=== PATIENT | male | born 1990 | race Caucasian/White ===

== ENCOUNTER 2024-01-26 18:05 | Outpatient (REF) | payer MEDICAID, SELFPAY | END 2024-01-26 18:06 | disposition home or self-care (01) | LOC: HO.HHCLNP 18:05 | PROVIDERS: Visit Provider Student in an Organized Health Care Education/Training Program | DX: J02.9 Acute pharyngitis, unspecified (principal) | CPT/HCPCS: 87070 ==

== ENCOUNTER 2024-02-15 15:42 | Outpatient (REF) | payer MEDICAID, SELFPAY ==
[2024-02-16 02:35] LABS: CT PCR NOT DETECTED (Not Detect.); NG PCR NOT DETECTED (Not Detect.)
== END 2024-02-15 15:43 | disposition home or self-care (01) ==
LOC: HO.CHCLNP 15:42
PROVIDERS: Visit Provider Family Medicine
DX: Z11.3 Encounter for screening for infections with a predominantly sexual mode of transmission (principal)
CPT/HCPCS: 87491; 87591

== ENCOUNTER 2024-02-17 10:28 | Outpatient (REF) | payer MEDICAID, SELFPAY ==
[2024-02-17 14:17] LABS: MANUAL DIFF FLAG NO
[2024-02-17 14:44] LABS: Basophils Absolute Auto 0.1 X10*3/uL (0.0-0.2); Basophils Percent Auto 1.1 % (0-2); Eosinophils Absolute Auto 0.5 X10*3/uL (0.0-0.4); Eosinophils Percent Auto 8.4 % (0-4); Hematocrit 42.6 % (42.0-52.0); Hemoglobin 14.4 g/dl (14.0-18.0); Imm Gran Abs Auto 0.01 X10*3/uL (0.00-0.03); Imm Gran Pct Auto 0.2 % (0.0-0.4); Lymphocytes Percent Auto 35.6 % (20-40); Mean Corpuscular HGB Conc 33.8 g/dl (31.0-36.0); Mean Corpuscular Hemoglobin 29.3 pg (27.0-33.0); Mean Corpuscular Volume 86.8 fL (80.0-98.0); Mean Platelet Volume 8.4 fL (9.4-12.4); Monocytes Absolute Auto 0.5 X10*3/uL (0.1-1.2); Monocytes Percent Auto 8.2 % (2-11); Neutrophils Absolute Auto 2.6 x10*3/uL (2.0-8.3); Neutrophils Percent Auto 46.5 % (45-73); Platelet Count 289 X10*3/uL (160-400); Red Blood Count 4.91 X10*6/uL (4.60-5.80); Red Cell Distribution Width 13.7 % (11.0-16.0); White Blood Count 5.5 X10*3/uL (4.8-10.8)
[2024-02-17 15:08] LABS: Alanine Aminotransferase 27 U/L (0-40); Albumin Level 4.4 g/dL (3.5-5.0); Alkaline Phosphatase 55 U/L (39-117); Anion Gap 10 (12-20); Aspartate Amino Transferase 39 U/L (5-37); Bilirubin Total 0.3 mg/dL (0.0-1.0); Blood Urea Nitrogen 9 mg/dL (9-16); Calcium 9.4 mg/dL (8.4-10.2); Carbon Dioxide 28 mmol/L (22-29); Chloride 107 mmol/L (96-108); Cholesterol 180 mg/dL (<200); Estimated Glomerular Filt Rate > 60; Glucose Random 83 mg/dL (60-115); HDL Cholesterol 67 mg/dL (>40); LDL Cholesterol Calculated 105 mg/dL (<100); Potassium 4.3 mmol/L (3.3-5.1); Sodium 141 mmol/L (135-145); Triglycerides 40 mg/dL (<150)
[2024-02-17 15:10] LABS: Syphilis Screen Nonreactive (Nonreactive)
[2024-02-17 15:14] LABS: HIV AB/AG Nonreactive (Nonreactive); HIV Num 1 0.07 S/CO (0.00-0.99); ~Hepatitis C Antibody Nonreactive (Nonreactive)
[2024-02-17 15:22] LABS: Total Protein 7.1 g/dL (6.5-8.0)
== END 2024-02-17 10:29 | disposition home or self-care (01) ==
LOC: HO.CHCLDS 10:28
PROVIDERS: Visit Provider Family Medicine
DX: E66.09 Other obesity due to excess calories (principal); Z13.9 Encounter for screening, unspecified; Z68.32 Body mass index [BMI] 32.0-32.9, adult; Z11.3 Encounter for screening for infections with a predominantly sexual mode of transmission
CPT/HCPCS: 36415; 80053; 80061; 85025; 86780; 86803; 87389

== ENCOUNTER 2024-06-07 10:56 | Outpatient (REF) | payer MEDICAID, SELFPAY | END 2024-06-07 10:57 | disposition home or self-care (01) | LOC: HO.CHCLNP 10:56 | PROVIDERS: Visit Provider Family Medicine | DX: K21.9 Gastro-esophageal reflux disease without esophagitis (principal) | CPT/HCPCS: 87338 ==

== ENCOUNTER 2024-07-17 12:00 | Outpatient (REF) | payer MEDICAID, SELFPAY ==
--- NOTE | ~2024-07-17 | XR_ITS ---
EXAMINATION: XR THORACIC SPINE 2 VIEWS HISTORY: PAIN COMPARISON: There are no prior studies for comparison. FINDINGS: AP and lateral views of the thoracic spine are submitted. Osseous mineralization is normal. The vertebral bodies maintain normal height and alignment without evidence of fracture or subluxation. The intervertebral disc spaces are preserved. The visualized paraspinal soft tissues are unremarkable. XR/XR thoracic spine 2V IMPRESSION: Unremarkable examination of the thoracic spine. Electronically signed by: Farzad Ferreira MD 07/17/2024 01:00 PM PAU
--- OUTSIDE RECORDS SUMMARY | 2024-07-17 13:45 | XMS_ITS | Data Portability ---
Author Organization [place] - [facility], [facility]ergy Address [address] [place] [address] Care Team Providers Care Well Drill Operator Helper Cable Tool Name Role Phone EMILIANO BARAJAS Primary Care Provider Assessment Encounter Date Assessment Date Assessment LastModified by Organization Details LastModified Time 06/08/2024 06/08/2024 34-year-old male presents today for evaluation of his ear. He was initially referred for a left ear foreign body but this has since resolved. Cerumen is absent. Audiometric testing shows a notch at 4000 Hz on the left. He does have some intermittent autophony and does have a lot of allergy symptoms. He is already on an antihistamine and nasal steroid. Symptoms seem to be worse after getting a cat. He would like to proceed with allergy testing which we will schedule. [email or web address] Not available 06/21/2024 06:51:16 Plan of Treatment Reminders Order Date Submit Date Provider Last Modified By Organization Details Last Modified Time Details Appointments Establish ed 15 2024 02:15P Awa JACOME MD Not available Not available Not available Lab None recorded. Referral None recorded. Procedures allergy testing, skin prick (PROC) 2023 024 [email or web address] Not available 07/12/2024 13:09:54 intraderm al allergy skin testing (PROC) 2023 024 [email or web address] Not available 07/12/2024 13:10:02 pulmonary function test procedure (PROC) 2023 024 skorzec Not available 07/12/2024 13:10:08 pulse oximetry (PROC) 2023 024 [email or web address] Not available 07/12/2024 13:10:14 Surgeries None recorded. Imaging None recorded. Medication Orders None recorded. Patient TargetsNo targets recorded. Patient Instructions Encounter Date Encounter Id Patient Instructions Last Modified By Organization Details Last Modified Time 07/12/2024 [id number] Nursing Documentation for Allergy Testing: Ordering Provider {{Dr. Savita Fowler}} Weight:lbs:235??kg : ?? PFT {{Yes* no}} With Bronchodilator {{Yes no*}} Dr. abdullahi needed to proceed with allergy testing? {{Yes* No}} {{Dr. Savita Fowler}} ok'd testing {{Yes* No Pulmonar y Clearance PCP Clearance RAST}}Hi story of Asthma:{{Yes No*}} Asthma Meds: ??Last used:?? Asthma exacerbated by: ?? Chance that : {{Yes No* Not Sure N/A}} Fear of needles: {{Yes* No}} Regular medications reviewed in Computer: {{Yes* No}} Medication allergies: {{Reviewed NKDA*}} Antihistamine use: {{Yes* No}} Medications used:loratadine ?? Food Allergies:no ?? Any foods make your mouth feeling itchy: {{Yes No*}} If yes: ?? History of severe reaction where had to go to ER? {{Yes No*}} If yes details: ?? Type of heat in home: {{Baseboard Forced Air* Radiator othe r}} Pets: {{Yes No*}} If yes: ?? Smoker: {{Yes Current Never Form er*}} If former smoker-how much ?? 5/ day for how long 15 yrs ?? When quit 1yr ago years ago Smoking now-how much ?? Occupation/Social History: ?? Symptoms having: {{Congestion* Post Nasal Drip Headache Runn y Nose Cough Other}} If other: ?? Frequency {{Seasonally Year Round*}} Spirometry Contraindications: Heart attack in the last 3 months: {{Yes No*}} Major surgery in last 3 months: {{Yes No*}} Detached retina(serious eye issues) in last 2 months: {{Yes No*}} Hospitilization in last month: {{Yes No*}} Proceed with PFT {{Yes* No}} approval needed: {{Yes No*}} Nursing Notes: Pt tolerated test well {{Yes* No}} Benadryl cream to test sites {{Yes No*}} Patient became syncopal-placed in supine position {{Yes No*}} Large reactions to MQT, reschedule IDT for a different date {{Yes No*}} Other: ?? Written by: {{VELASQUEZ Weber, RMA* Luci Ro}} [email or web address] Not available 07/12/2024 14:06:33 Reason for Referral None Reported. Results Created Date Observation Date Name Description Value Unit Range Abnormal Flag Note LastModifiedBy Organization Detail LastModifiedTime 06/08/20 24 audio gram No observ ation record ed. BARCODE Not Available 2023 15:09:13 07/12/19 25 nohemi metry testi ng* No observ ation record ed. [email or web address] Not Available 2024 13:22:36 Result Notes None recorded. Problems Name Problem SNOMED Code Status Onset Date Resolution Date Notes Provider Name and Address Organization Details Recorded Time Sensorineur al hearing loss 28706549 Active 2023 Jaki crum [place] - [facility] 4 10:01:30 Nasal congestion 52077333 Active 2023 ROCKY JACOME MD [address] [place] [address], [place], [phone], [facility] - [facility] 4 10:44:01 Allergic rhinitis 47951549 Active 2023 ROCKY JACOME MD [address] [place] [address], [place], [address], [facility] - [facility] 4 10:44:39 Non-allergi c rhinitis 565062632363 Active 2023 ROCKY JACOME MD [address] [place] [address], [place], [address], [facility] - [facility] 4 10:45:22 Seasonal allergic rhinitis 086035510 Active 2023 ROCKY JACOME MD [address] [facility], [place], [address], [facility] - [facility] 4 10:45:22 Problem Notes None recorded. Procedures Surgical History Date Name Laterality Status Provider Name and Address Organization Details Recorded Time 5 Allergy Testing-Full completed TIERA CHERRIZE, RMA [address] [facility] [address], [place], [address], [facility] - [facility] 07/12/2024 14:06:19 4 Comp Audio with Tymps ([id number] & 53731) completed Jaki Mabry [place] - [facility] 06/08/2024 10:01:16 Imaging Results Imaging Date Name Status LastModified by Organiz ation Details LastModified Time 06/08/2024 audiogram completed BARCODE Information no t available 06/08/2024 15:09:13 07/12/2024 spirometry testing* active Information not available 07/12/2024 13:22:36 Procedure Notes None recorded. Medical Equipment None Reported. Allergies No known drug allergies Medications Name Sig Start Date Stop Date Status Note LastModified by Organization Details LastModified Time quetiapine 25 mg tablet TAKE 1 TABLET BY MOUTH EVERY NIGHT AT BEDTIME. MAY REPEAT ONE TIME FOR INSOMNIA/ THOUGHTS 06/08 completed Not Available Not Available Not Available amoxicillin 500 mg capsule TAKE 1 CAPSULE BY MOUTH THREE TIMES DAILY FOR 7 DAYS 06/08 completed Not Available Not Available Not Available clonidine HCl 0.1 mg tablet TAKE 1 TABLET BY MOUTH EVERY NIGHT AT BEDTIME 06/08 completed Not Available Not Available Not Available gabapentin 600 mg tablet TAKE 1 TABLET BY MOUTH EVERY DAY AT BEDTIME 06/08 completed Not Available Not Available Not Available ibuprofen 800 mg tablet TAKE 1 TABLET BY MOUTH EVERY 6 HOURS IF NEEDED FOR MILD PAIN FOR UP TO 10 DAYS 06/08 completed Not Available Not Available Not Available prazosin 1 mg capsule TAKE 1 CAPSULE BY MOUTH AT BEDTIME, ALONG WITH THE 5 MG DOSE, FOR A TOTAL OF 6 MG 06/08 completed Not Available Not Available Not Available hydroxyzine HCl 50 mg tablet TAKE 2 TABLETS BY MOUTH EVERY NIGHT AT BEDTIME 06/08 completed Not Available Not Available Not Available olanzapine 2.5 mg tablet TAKE 1 TABLET BY MOUTH EVERY NIGHT AT BEDTIME. MAY TAKE 1 TABLET DAILY IF NEEDED FOR ANXIETY/A GITATION. 06/08 completed Not Available Not Available Not Available prazosin 5 mg capsule TAKE 1 CAPSULE BY MOUTH EVERY NIGHT AT BEDTIME WITH THE 2 MG DOSE, FOR A TOTAL OF 7 MG. active Not Available Not Available No t Available clonidine HCl 0.2 mg tablet TAKE 1 TABLET BY MOUTH EVERY DAY AT BEDTIME 06/08 completed Not Available Not Available Not Available gabapentin 800 mg tablet TAKE 1 TABLET BY MOUTH EVERY NIGHT AT BEDTIME active Not Available Not Available No t Available fluvoxamine 25 mg tablet TAKE 1 TABLET BY MOUTH ONCE DAILY WITH 50 MG TO EQUAL 75 MG DAILY active Not Available Not Available No t Available Proctozone- HC 2.5 % topical cream perineal applicator INSERT RECTALLY TWICE DAILY 06/08 completed Not Available Not Available Not Available fluvoxamine 100 mg tablet TAKE 1/4 (ONE-FOUR TH) TABLET BY MOUTH ONCE DAILY 06/08 completed Not Available Not Available Not Available ibuprofen 400 mg tablet TAKE 1 TABLET BY MOUTH EVERY 8 HOURS NEEDED FOR PAIN OR FEVER FOR UP TO 7 DAYS 06/08 completed Not Available Not Available Not Available gabapentin 300 mg capsule TAKE 1 CAPSULE BY MOUTH AT BEDTIME 06/08 completed Not Available Not Available Not Available fluvoxamine 50 mg tablet TAKE 1 TABLET BY MOUTH ONCE DAILY 06/08 completed Not Available Not Available Not Available gabapentin 100 mg capsule TAKE 1 CAPSULE BY MOUTH TWICE DAILY NEEDED FOR ANXIETY OR SLEEP 06/08 completed Not Available Not Available Not Available loratadine 10 mg tablet 10 mg every day by oral route. 2023 active Not Available Not Available Not Avai lable prazosin 2 mg capsule TAKE 1 CAPSULE BY MOUTH EVERY NIGHT AT BEDTIME WITH THE 5MG CAPSULE. FOR A TOTAL DOSE OF 7 MG active Not Available Not Available No t Available Stool Softener 30 mg-100 mg capsule 3 capsules every week by oral route. 2023 active Not Available Not Available Not Avai lable Wellbutrin XL 150 mg 24 hr tablet, extended release TAKE 1 TABLET BY MOUTH EVERY MORNING WITH 300 MG TO EQUAL 450 MG EACH MORNING 06/08 completed Not Available Not Available Not Available Wellbutrin XL 300 mg 24 hr tablet, extended release TAKE 1 TABLET BY MOUTH ONCE DAILY EVERY MORNING active Not Available Not Available No t Available Multivitami n 50 Plus tablet Take by oral route. active Not Available Not Available No t Available Pain Reliever (acetaminop hen) 500 mg tablet TAKE 1 TABLET BY MOUTH EVERY 6 HOURS NEEDED FOR PAIN active Not Available Not Available No t Available magnesium 300 mg tablet 600 mg every day by oral route. 2023 active Not Available Not Available Not Avai lable eszopiclone 3 mg tablet TAKE 1 TABLET BY MOUTH EVERY DAY AT BEDTIME active Not Available Not Available No t Available eszopiclone 1 mg tablet TAKE 1 TABLET BY MOUTH EVERY DAY AT BEDTIME 07/12 completed Not Available Not Available Not Available chlorhexidi ne gluconate 0.12 % mouthwash RINSE WITH 15ML FOR 30 SECONDS AND SPIT, USE TWICE DAILY AFTER BRUSHING AND FLOSSING . AVOID RINSING/ EATING FOR 30 MINUTES AFTER TREATMENT . AFTER BREAKFAST AND BEFORE BEDTIME. 06/08 completed Not Available Not Available Not Available phenazopyri dine 07/12 completed Not Available Not Available Not Available loratadine 10 mg capsule Take by oral route. 07/12 completed Not Available Not Available Not Available Wegovy 2.4 mg/0.75 mL subcutaneou s pen injector INJECT ONE PEN (=2.4 MG) SUBCUTANE OUSLY ONCE A WEEK active Not Available Not Available No t Available Wegovy 1.7 mg/0.75 mL subcutaneou s pen injector Inject 0.75 mL (1.7 mg) under the skin 1 (one) time per week. 06/08 completed Not Available Not Available Not Available Wegovy 1 mg/0.5 mL subcutaneou s pen injector INJECT 1 MG SUBCUTANE OUSLY ONCE PER WEEK 06/08 completed Not Available Not Available Not Available Wegovy 0.25 mg/0.5 mL subcutaneou s pen injector INJECT 0.25 MG'S SUBCUTANE OUSLY ONCE PER WEEK 06/08 completed Not Available Not Available Not Available Wegovy 0.5 mg/0.5 mL subcutaneou s pen injector INJECT 0.5 MG SUBCUTANE OUSLY ONCE PER WEEK 06/08 completed Not Available Not Available Not Available Vitals Date Recorded Body height Body mass index (BMI) Body weight Provider Name and Address Organization Details Last Updated DateTime 06/08/2024 185.42 cm 32.7 kg/m2 111020.11 g Georgina Trevor [facility] 06/08/2024 10:23:10 Date Recorded Body height Oxygen saturation Oxygen saturation in Arterial blood by Pulse oximetry Heart rate Body mass index (BMI) Body weight Systolic blood pressure Diastolic blood pressure Provider Name and Address Organization Details Last Updated DateTime 185.42 cm 98 % 98 % 76 /min 31 kg/m2 656958. 21 g 122 mm[Hg] 78 mm[Hg] [facility], [facility] [address], [address], [facility] 13:14:34 Social History Question Answer Notes LastModified by Organizat ion Details LastModified Time Tobacco Smoking Status Former Smoker [address], [address], [facility] 07/12/2024 13:18:44 When Did You Quit Smoking? 1-5yearssinc elastcigaret te Information not available 07/12/2024 How Much Tobacco Do You Smoke? 1 PPW Information not available 07/12/2024 How Many Years Have You Smoked Tobacco? 15 Information not available 07/12/2024 Sex: Unknown Functional Status None recorded. Mental Status None recorded. Family History Relationship Description Onset Age of this Age Resolved Age Notes LastModified by Organization Details LastModified Time Mother Hearing loss 55 [email or web address] Not andriy ilable 06/21/2024 06:48:19 Medical History Condition Response Allergies/Hayfever N Heart Problems N Anxiety Y Tonsil Infections N Emphysema N Migraines N Thyroid Problems N Glaucoma N Depression Y COPD N Developmental Delay N Nasal or Sinus Problems Y Anemia N Immune System Disorder N Anesthesia Complications N Heart Attack ([place]) N Other Skin Condition N Diabetes N Rhinitis N Bleeding Disorder N Food Allergy N Arthritis N Hearing Loss N Hyperlipidemia N Cancer N Stroke N Dementia N Nasal polyps N Asthma N High Cholesterol N Sleep Disorder Y GERD/Reflux N Liver Disease N Headaches N Fibromyalgia N Hypertension N Speech Delay N Kidney Disease N Past Encounters Encounter ID Performer Location Encounter Start Date Encounter Closed Date Diagnosis/Indication Diagnosis SNOMED-CT Code Diagnosis ICD10 Code Diagnosis Note [id number] ROCKY JACOME MD [facility] [address] [address] 06/08/2024 09:29:13 06/08/2024 10:52:18 Sensorineural hearing loss 82520234 H90.42 Audiologic al evaluation results: Right ear: {{Normal* Normal through 2 kHz Mild M oderate Mo derately-s evere Juanita re Profoun d}} {{hearing* hearing. sloping to a mild slopi ng to a moderate s loping to moderately severe slo ping to severe slo ping to profound f lat high frequency low frequency mid frequency cookie bite bautista curve}} {{with* se nsorineura l hearing loss with condu ctive hearing loss with mixed hearing loss with}} {{excellen t* good fa ir poor no measurable }} word recognitio n. Left ear: {{Normal* Normal through 2 kHz Mild M oderate Mo derately-s evere Juanita re Profoun d}} {{hearing hearing. s loping to a mild slopi ng to a moderate s loping to moderately severe slo ping to severe slo ping to profound f lat high frequency low frequency mid frequency cookie bite bautista curve slop ing to a mild SNHL at 4kHz recover to WNL#}} {{with* se nsorineura l hearing loss with condu ctive hearing loss with mixed hearing loss with}} {{excellen t* good fa ir poor no measurable }} word recognitio n. Tympanomet ry: Right Ear:{{Type A Type As* Type Ad Type C Type C, shallow & rounded Ty pe B Type B with large volume Cou ld not maintain a hermetic seal}} Left Ear:{{Type A Type As* Type Ad Type C Type C, shallow & rounded Ty pe B Type B with large volume Cou ld not maintain a hermetic seal}} Nasal congestion 0177794 0 R09.81 Allergic rhinitis 277940 04 J30.9 [id number] TIERA SALOMON, A [facility] [address] [facility], [address] [place] [address] 07/12/2024 12:59:17 07/12/2024 14:07:29 Allergic rhinitis 14348806 J30.9 Health Concerns Section Related Observation LastModified by Organization Detai ls LastModified Time None Recorded Concern Status LastModified by Organization Details LastModified Time None Recorded Advance Directives Directive None Recorded Payers Encounter Date Sequence Insurance Name Policy Number Policy Mcclendon Covered Member ID Mcclendon Member ID Guarantor Name 06/08/2024 1 [place] [facility] Deonte Lemus [id number] Deonte Lemus 07/12/2024 1 [place] [facility] Deonte Lemus [id number] Deonte Lemus Notes Date Note Type Note Provider Name and Address Organization Details Recorded Time 06/08/2024 text/html 34 yo M few months ago cotton tip in the left ear, went to walk in could not take out due to paincan hear autophony on the left, especially when talking for a long time, though does not hear breathing amplified now Does have recent weight gain never had symptoms prior to ear FB allergies when do the laundry, hard to breathe because nose is stuffy, no testing, has a cat got in July did grow up with cats wants to know if can take loratadine and nasal steroids daily ROCKY JACOME MD [address] [facility] [address], [place], [address], [facility] - [facility] 06/21/2024 06:51:30
== END 2024-07-17 12:01 | disposition home or self-care (01) ==
LOC: HO.HHCX 12:00
PROVIDERS: Visit Provider Family Medicine
DX: M54.9 Dorsalgia, unspecified (principal)
CPT/HCPCS: 72070

== ENCOUNTER → 2024-07-17 12:01 | Outpatient (BNV) | payer MEDICAID, SELFPAY | PROVIDERS: Visit Provider Radiology Diagnostic Radiology | DX: M54.9 Dorsalgia, unspecified (principal) | CPT/HCPCS: 72070 ==

== ENCOUNTER 2024-07-26 10:56 | Outpatient (REF) | payer MEDICAID, SELFPAY ==
--- OUTSIDE RECORDS SUMMARY | 2024-07-26 14:55 | XMS_ITS | Encounter Summary ---
Author Organization [employer] Address [address] [place] [address] Care Team Providers Care Hardware Supplies Sales Representative Name Role Phone Nicolle Dover MD Primary Care Provider [phone] Encounter Details Date Type Department Care Team (Latest Contact Info) Description 06/28/2024 Travel Social History Tobacco Use Types Packs/Day Years Used Date Smoking Tobacco: Former Cigarettes Q uit: 06/27/2007 Passive Smoke Exposure: Past Smokeless Tobacco: Never Alcohol Use Standard Drinks/Week Comments Never 0 (1 standard drink = 0.6 oz pur e alcohol) Housing Stability Answer Date Recorded What is your housing situation today? I have niki cazares 02/07/[address] you li ve. Do you have problems with any of the following? None of the above 02/07/2024 Food Insecurity Answer Date Recorded Within the past 12 months, y ou worried that your food would run out before you got money to buy more: Never True 02/07/2024 Within the past 12 months,th e food you bought just didn't last and you didn't have enough money to get more: Never True Transportation Answer Date Recorded In the past 12 months, has l ack of transportation kept you from medical appts, meetings, work or from getting things needed for daily living? No 02/07/2024 Utilities Answer Date Recorded In the past 12 months, has t he electric, gas, oil or water company threatened to shut off services in your home? No 02/07/2024 Internet Access Answer Date Recorded Internet Access Q1 Yes 02/27/2024 Internet Access Q2 Not on file 02/27/2024 Sex and Gender Information Value Date Recorded Sex Assigned at Male 08/25/2023 11:59 AM EST Legal Sex Male 11:56 AM EST Gender Identity Male 12/05/2023 10:04 AM EDT Sexual Orientation Straight 12/05/2023 10 :04 AM EDT documented as of this encounter Plan of Treatment Upcoming Encounters Date Type Department Care Team (Late st Contact Info) Description 07/30/2024 10:30 AM EST Clinical Support [facility] [address] [place] [address] [place] [address] documented as of this encounter Visit Diagnoses Not on filedocumented in this encounter Care Teams Hardware Supplies Sales Representative Relationship Specialty Start Date End Date Nicolle Dover MD [address] [place] [address] PCP - General Family Medicine 12/01/23 Darby Aldana NP Psychiatrist 06/27/21 documented as of this encounter
--- OUTSIDE RECORDS SUMMARY | 2024-07-26 14:55 | XMS_ITS | Encounter Summary ---
Author Organization [employer] Address [address] [place] [address] 7[address] [place] [address] Care Team Providers Care Skiver Sock Linings Name Role Phone Nicolle Dover MD Primary Care Provider [phone] Encounter Details Date Type Department Care Team ([facility] st Contact Info) Description 07/17/2024 11:00 AM EST Office Visit [facility] MED & PEDS [address] [place], [place] [phone] Nolan Duron MD [address] [place] [address] angioma (Primary Dx); Post-inflammatory hyperpigmentation; Cyst of nipple, unspecified laterality Social History Tobacco Use Types Packs/Day Years [...] AM EDT documented as of this encounter Last Filed Vital Signs Vital Sign Reading Time Taken Comments Blood Pressure 129/83 07/17/2024 11:19 AM EST Pulse 94 07/17/2024 11:19 AM EST Temperature 36.7 ??C (98 ??F) 07/17/2024 11:19 AM EST Respiratory Rate 20 07/17/2024 11:19 AM EST Oxygen Saturation 98% 07/17/2024 11:19 AM EST Inhaled Oxygen Concentration - - Weight 107 kg (236 lb) 07/17/2024 11:19 AM EST Height 182.9 cm (6') 07/17/2024 11:19 AM EST Body Mass Index 32.01 07/17/2024 11:19 AM EST documented in this encounter Progress Notes * Nolan Duron MD - 07/17/2024 11:00 AM EST Subjective Patient ID: Deonte Lemus is a 34 y.o. male who presents for No chief complaint on file.. HPI About 6 years h/o lesions of the soles of the feet. Multiple hyperpigmented lesions of the left 1/3 of leg Also concerned about some papules of the areola and the posterior shaft of the penis Patient Active Problem List Diagnosis Acute foreign body of left ear Depression with anxiety Pharyngitis Class 1 obesity due to excess calories with serious comorbidity and body mass index (BMI) of 32.0 to 32.9 in adult Skin macule Sleep apnea Gastroesophageal reflux disease without esophagitis Nasal congestion Current Outpatient Medications on File Prior to Visit Medication Sig Dispense Refill fluticasone (Flonase) 50 MCG/ACT nasal spray Administer 1-2 sprays into each nostril Once per day. Shake gently. Before first use, prime pump. After use, clean tip and replace cap. 16 g 0 fluvoxaMINE (Luvox) 50 MG tablet Take 50 mg by mouth Once per day. gabapentin (Neurontin) 100 MG capsule TAKE 1 CAPSULE BY MOUTH TWICE DAILY NEEDED FOR ANXIETY OR SLEEP gabapentin (Neurontin) 600 MG tablet Take 600 mg by mouth at bedtime. loratadine (Claritin) 10 MG tablet Take 1 tablet (10 mg) by mouth Once per day. 90 tablet 1 prazosin (Minipress) 2 MG capsule Take 2 mg by mouth at bedtime. Semaglutide-Weight Management (Wegovy) 2.4 MG/0.75ML solution auto-injector INJECT ONE PEN (=2.4 MG) SUBCUTANEOUSLY ONCE A WEEK 3 mL 5 Tirzepatide-Weight Management (Zepbound) 5 MG/0.5ML solution Inject 5 mg under the skin 1 (one) time per week. Do not start before June 27, 2024. 2 mL 3 Wellbutrin XL 300 MG 24 hr tablet Take 300 mg by mouth in the morning. No current facility-administered medications on file prior to visit. Review of Systems Constitutional: Negative for activity change, appetite change, chills and diaphoresis. Eyes: Negative for pain, redness and itching. Respiratory: Negative for cough and shortness of breath. Musculoskeletal: Negative for back pain and gait problem. Skin: Multiple skin lesions Objective BP 129/83 (BP Location: Left arm, Patient Position: Sitting, BP Cuff Size: Adult long) Pulse 94 Temp 98 ??F (36.7 ??C) (Oral) Resp 20 Ht 6' (1.829 m) Wt 236 lb (107 kg) SpO2 98% BMI 32.01 kg/m?? Physical Exam Constitutional: General: He is not in acute distress. Appearance: Normal appearance. He is obese. He is not ill-appearing, toxic- appearing or diaphoretic. Skin: Comments: 1)red small papules of the soles 2)Small papule of the areolas. 3) multiple 1 x 1 mm small papules of the posterior shaft of the penis 4) small hyperpigmented macules of the distal left leg Neurological: Mental Status: He is alert. Assessment/Plan Diagnoses and all orders for this visit: angioma Comments: reassurance No acute intervention needed on the sole. Post-inflammatory hyperpigmentation Comments: LOcated on the left lower limb No acute intervention. Cyst of nipple, unspecified laterality Comments: reassurance Come back to the office if increasing in size. documented in this encounter Plan of Treatment Upcoming Encounters Date Type Department Care Team (Late st Contact Info) Description 07/30/2024 10:30 AM EST Clinical Support [facility] DIABETES/NUTRITION [address] [place] [address] Liane Barbosa, [place] [address] [place] [address] documented as of this encounter Visit Diagnoses Diagnosis angioma- Primary Hemangioma of other sites Post-inflammatory hyperpigmentation Dyschromia, unspecified Cyst of nipple, unspecified laterality documented in this encounter Care Teams Skiver Sock Linings Relationship Specialty Start Date End Date Nicolle Dover MD [address] [place] [phone] PCP - General Family Medicine 12/01/23 Darby Aldana NP Psychiatrist 06/27/21 documented as of this encounter
--- OUTSIDE RECORDS SUMMARY | 2024-07-26 14:55 | XMS_ITS | Clinical Summary ---
Author Organization [employer] Address [address] [facility] [address] [place] [address] Care Team Providers Care Engineering Programmer Name Role Phone Nicolle Dover MD Primary Care Provider [phone] Allergies No known active allergies Medications Wellbutrin XL 300 MG 24 hr tablet Take 300 mg by mouth in the morning. Active prazosin (Minipress) 2 MG capsule Take 2 mg by mouth at bedtime. 024 Active Tirzepatide-W eight Management (Zepbound) 5 MG/0.5ML solution Inject 5 mg under the skin 1 (one) time per week. Do not start before June 27, 2024. 2 mL 3 025 Active Semaglutide-W eight Management (Wegovy) 2.4 MG/0.75ML solution auto-injector INJECT ONE PEN (=2.4 MG) SUBCUTANEOUSLY ONCE A WEEK 3 mL 5 024 Active loratadine (Claritin) 10 MG tablet Take 1 tablet (10 mg) by mouth Once per day. 90 tablet 1 024 Active fluticasone (Flonase) 50 MCG/ACT nasal spray Administer 1-2 sprays into each nostril Once per day. Shake gently. Before first use, prime pump. After use, clean tip and replace cap. 48 g 3 025 2025 Active fluvoxaMINE (Luvox) 50 MG tablet Take 50 mg by mouth Once per day. 024 2024 Discontinued(T herapy completed) gabapentin (Neurontin) 600 MG tablet Take 600 mg by mouth at bedtime. 07/18/08 Discontinued(T herapy completed) gabapentin (Neurontin) 100 MG capsule TAKE 1 CAPSULE BY MOUTH TWICE DAILY NEEDED FOR ANXIETY OR SLEEP 2024 Discontinued(T herapy completed) fluticasone (Flonase) 50 MCG/ACT nasal spray Administer 1-2 sprays into each nostril Once per day. Shake gently. Before first use, prime pump. After use, clean tip and replace cap. 16 g 024 2024 Discontinued(R eorder (will not trigger notification to Pharmacy)) fluticasone (Flonase) 50 MCG/ACT nasal spray Administer 1-2 sprays into each nostril Once per day. Shake gently. Before first use, prime pump. After use, clean tip and replace cap. 16 g 025 2024 Discontinued(R eorder (will not trigger notification to Pharmacy)) Active Problems Problem Noted Date Diagnosed Date Nasal congestion 06/25/2024 Assessment & Plan (06/25/2024 4:18 PM EST): Discussed medications as needed. Skin macule 04/02/2024 Sleep apnea 04/02/2024 Gastroesophageal reflux disease without esophagi tis 04/02/2024 Class 1 obesity due to exces s calories with serious comorbidity and body mass index (BMI) of 32.0 to 32.9 in adult 02/15/2024 Assessment & Plan (06/25/2024 4:19 PM EST): Previous: 242 Current: 241 Pt has lost 1 pound since the start of Wegovy. Continue to follow up with Nutrition Services. Begin Zepbound in June and follow up in 4 months. Assessment & Plan (02/23/2024 9:40 AM EDT): Discussed calorie deficit, recommended reduction of 20-30% of maintenance calories; career specialist referral offered. Recommended to decrease soda and sugary beverage consumption. Recommended at least 20 g per meal of protein to assist with satiety. Recommended at least 150 min/week of moderate intensity exercise. Andreas Dicussed treatment options for weight loss and potential side effects. Prescribed Wegovy. Follow up in 6 weeks. Depression with anxiety 01/26/2024 Pharyngitis 01/26/2024 Assessment & Plan (01/26/2024 5:00 PM EDT): Symptoms of likely viral pharyngitis w normal VS and no concerning findings on exam COVID neg -sent strep throat to lab but unlikely w no ZHONG no fever -cepacol,tylenol prn -NSAIDS prn for mod pain -alarm signs and symptoms -mask use advised ,hand hygiene Acute foreign body of left ear 12/05/2023 Encounters Date Type Department Care Team Description 07/23/2024 Travel 07/20/2024 Refill [facility] & PEDS [address] [place] [address] Nicolle Dover MD 07/19/2024 Orders Only [facility] [address] [place] [address] Nolan Duron MD 07/18/2024 Telephone [facility] [address] [place] [address] Nicolle Dover MD Medication Question 07/17/2024 11:00 AM EST Office Visit [facility] [address] [place] [address] Nolan Duron MD angioma (Primary Dx); Post-inflammatory hyperpigmentation; Cyst of nipple, unspecified laterality 07/17/2024 Refill [facility] [address] [place] [address] Nicolle Dover MD 07/17/2024 Telephone [facility] [address] [place] [address] Nicolle Dover MD Medication Question 07/17/2024 Telephone [facility] [address] [place] [address] Nicolle Dover MD Med Refill 07/17/2024 Telephone [facility] [address] [place] [address] Nicolle Dover MD Referral 07/17/2024 Travel 07/10/2024 Travel 07/02/2024 1:00 PM EST Clinical Support [facility] DIABETES/NUTRITION [address] [place] [address] Class 1 obesity due to excess calories without serious comorbidity with body mass index (BMI) of 32.0 to 32.9 in adult (Primary Dx) 07/02/2024 Travel 06/29/2024 Telephone [facility] [address] [place] [address] Nicolle Dover MD 06/28/2024 Travel 06/25/2024 3:45 PM EST Office Visit [facility] [address] [place] [address] Nicolle Dover MD Class 1 obesity due to excess calories with serious comorbidity and body mass index (BMI) of 32.0 to 32.9 in adult (Primary Dx); Nasal congestion; Mid back pain 06/25/2024 Travel 06/22/2024 Telephone [facility] [address] [place] [address] Nicolle Dover MD chart prep 06/21/2024 Travel 06/04/2024 Refill [facility] [address] [place] [address] Nicolle Dover MD 06/04/2024 Telephone [facility] MEDICINE [address] [place] [address] Nicolle Dover MD Medication Question 05/29/2024 12:30 PM EST Nutrition [facility] DIABETES/NUTRITION [address] [place] [address] Class 1 obesity due to excess calories without serious comorbidity with body mass index (BMI) of 32.0 to 32.9 in adult (Primary Dx) 05/29/2024 Travel 05/17/2024 12:40 PM EST Immunization [facility] MEDICINE [address] [place] [phone] Encounter for immunization 05/17/2024 Travel 05/15/[address] [address] Nicolle Dover MD Appointment Request 05/11/2024 Telephone [facility] MEDICINE [address] [place], [place] [phone] Nicolle Dover MD Referral 05/10/2024 2:00 PM EST Nutrition [facility] DIABETES/NTRN [address] [place] [address] Liane Barbosa, ADAMA Class 1 obesity due to excess calories with serious comorbidity and body mass index (BMI) of 32.0 to 32.9 in adult 05/10/2024 Travel 05/07/2024 Telephone [facility] CHC MED & PEDS [address] [place] [address] Nicolle Dover MD [facility] no longer covered June 27, 2024 05/07/2024 Travel 05/07/2024 Telephone [facility] [address] [place], [place] [phone] Nicolle Dover MD from Last 3 Months Immunizations Name Administration Dates Next Due Influenza, seasonal, injectable, preservative fr ee 05/17/2024 Family History Medical History Relation Name Comments Diabetes Father Hypertension Father Relation Name Status Comments Father Social History Tobacco Use Types Packs/Day Years Used Date Smoking Tobacco: Former Cigarettes Q uit: 06/27/2007 Passive Smoke Exposure: Past Smokeless Tobacco: Never Tobacco Cessation:Counseling Given: Not Answered Alcohol Use Standard Drinks/Week Comments Never 0 [...] Orientation Straight 12/05/2023 10 :04 AM EDT Last Filed Vital Signs Vital Sign Reading [...] Mass Index 32.01 07/17/2024 11:19 AM EST Plan of Treatment Upcoming Encounters Date Type Department Care Team (Late st Contact Info) Description 07/30/2024 10:30 AM EST Clinical Support [facility] DIABETES/NUTRITION [address] [place] [address] [place] [address] Health Maintenance Due Date Last Done Comments Depression Screening 1988 Alcohol/Substance Use Screening 2000 Family Planning (PISQ) 01/05/2003 COVID-19 Vaccine ( season) 2024 05/12/2022, 12/11/2021, 12/06/2020, Additional history exists SDOH Screening 02/06/2025 02/07/2024 Tobacco Screening 07/17/2025 07/17/2024 Lipid Panel 02/16/2029 02/17/2024 DTaP/Tdap/Td Vaccines (2 - Td or Tdap) 12/24/2033 12/25/2023 Zoster Vaccines (1 of 2) 01/05/2038 RSV Patients and Patients Aged 60 years or older (1 - 1-dose 75+ series) 01/05/2063 Pneumococcal Vaccine: Pediatrics (0 to 5 Years) and At-Risk Patients (6 to 49) Years) Aged Out 07/01/2016 No longer eligible based on patient's age to complete this topic Hepatitis B Vaccines Completed 01/24/2024, 12/25/19 24 HIV Screening Completed 02/17/2024 Hepatitis C Screening Completed 02/17/2024 Influenza Vaccine Completed 05/17/2024, 07/01/2016 HIB Vaccines Aged Out No longer eligi ble based on patient's age to complete this topic HPV Vaccines Aged Out No longer eligi ble based on patient's age to complete this topic Hepatitis A Vaccines Aged Out No long er eligible based on patient's age to complete this topic IPV Vaccines Aged Out No longer eligi ble based on patient's age to complete this topic Meningococcal Vaccine Aged Out No merari abbey eligible based on patient's age to complete this topic RSV under 20 months Aged Out No longe r eligible based on patient's age to complete this topic Rotavirus Vaccines Aged Out No longer eligible based on patient's age to complete this topic Procedures Procedure Name Priority Date/Time Associated Diagnosis Comments XR THORACIC SPINE 2 VIEWS Routine 07/17/2024 12:01 PM EST Mid back pain HELICOBACTER PYLORI AG, EIA, STOOL Routine 06/07/2024 10:10 AM EST Gastroesophageal reflux disease without esophagitis HEPATITIS C AB W/REFL TO HCV RNA, QN, PCR Routine 02/17/2024 10:31 AM EDT Encounter for health-related screening HIV 1/2 ANTIGEN/ANTIBODY, FOURTH GENERATION W/RFL Routine 02/17/2024 10:31 AM EDT Encounter for health-related screening LIPID PANEL, STANDARD Routine 02/17/2024 10:31 AM EDT Class 1 obesity due to excess calories with serious comorbidity and body mass index (BMI) of 32.0 to 32.9 in adult from Last 3 Months or Most Recently Relevant to Health Maintenance Results * XR Thoracic Spine 2 Views (07/17/2024 12:01 PM EST) Anatomical Region Laterality Modality Spine, T-spine Radiographic Kandy ging 07/17/2024 12:0 1 PM EST Narrative 07/17/2024 1:03 PM EST ?[facility] ?[address] ?[place] [address] ?XRay Report ? Signed ? Patient: Lemus,Deonte ?MR#: [id number] ?? [id number] ? : 1990 ?Acct:[id number] ? Age/Sex: 34 / M ?ADM Date: 07/17/24 ? Loc: HO.HHCX ? Attending Dr: Nicolle Dover MD ? Ordering Physician: Nicolle Dover MD ?? Date of Service: 07/17/24 ?? Procedure(s): XR thoracic spine 2V ?? Accession Number(s): [id number] ? cc: Nicolle Dover MD ? EXAMINATION: ??XR THORACIC SPINE 2 VIEWS ? HISTORY: PAIN ? COMPARISON: There are no prior studies for comparison. ? FINDINGS: ??AP and lateral views of the thoracic spine are submitted. ? Osseous mineralization is normal. ??The vertebral bodies maintain normal ?? height and alignment without evidence of fracture or subluxation. ??The ?? intervertebral disc spaces are preserved. ??The visualized paraspinal ?? soft tissues are unremarkable. ? XR/XR thoracic spine 2V ?? IMPRESSION: ?? Unremarkable examination of the thoracic spine. ? Electronically signed by: ??Farzad Ferreira MD ??07/17/2024 01:00 PM EST ?? RP ? Dictated By: ?Farzad Ferreira MD ? Signed By: ?<Electronically signed by Farzad Ferreira MD in OV> ?07/17/24 1300 ? DD/ 1201 ? TD/TT: 07/17/24 1233 ? Contract Associate: ? Procedure Note Ben Pozo - 07/17/2024 [facility] [address] [facility] [place] [address] XRay Report Signed Patient: Deonte LemusMR#: [id number] : 1990Acct:[id number] Age/Sex: 34 / MADM Date: 07/17/24 [facility]: Nicolle Dover MD Ordering Physician: Nicolle Dover MD Date of Service: 07/17/24 Procedure(s): XR thoracic spine 2V Accession Number(s): [id number] cc: Nicolle Dover MD EXAMINATION: XR THORACIC SPINE 2 VIEWS HISTORY: PAIN COMPARISON: There are no prior studies for comparison. FINDINGS: AP and lateral views of the thoracic spine are submitted. Osseous mineralization is normal. The vertebral bodies maintain normal height and alignment without evidence of fracture or subluxation. The intervertebral disc spaces are preserved. The visualized paraspinal soft tissues are unremarkable. XR/XR thoracic spine 2V IMPRESSION: Unremarkable examination of the thoracic spine. Electronically signed by: Farzad Ferreira MD 07/17/2024 01:00 PM EST Dictated By: Farzad Ferreira MD Signed By: <Electronically signed by Farzad Ferreira MD in OV> 07/17/24 1300 DD/ 1201 TD/TT: 07/17/24 1233 Contract Associate: us Nicolle Dover MD IMG XR PROCEDURES Edited Resu lt - Final * Helicobacter pylori??Antigen, EIA, Stool (06/07/2024 10:10 AM EST) H pylori Ag Stool SEE NOTE [facility] Comment:HELICOBACTER PYLORI AG, EIA, STOOL Micro Number: [id number] Test Status: Final Specimen Source: Stool Specimen Quality: Adequate H.pylori Ag: Not Detected Antimicrobials, proton pump inhibitors, and bismuth preparations inhibit H. pylori and ingestion up to two weeks prior to testing may cause false negative results. If clinically indicated the test should be repeated on a new specimen obtained two weeks after discontinuing treatment. Reference Range: Not DetectedTHIS TEST WAS PERFORMED AT:[facility] [place] [phone] MENARD MD Stool Rectal contents / Unknown 06/07/2024 10:10 AM EST 06/07/2024 6:09 PM EST Nicolle Dover MD LAB BODY FLUIDS AND STOOLS OR DERABLES Final Result Performing Organization Address [facility]/ZIP Co de Phone Number [facility] [address] [place] [phone] * Hepatitis C Antibody with Reflex to HCV, RNA, Quantitative, Real-Time PCR (02/17/2024 10:31 AM EDT) Hepatitis C Antibody Nonreactive Nonreactive [facility] Comment:Antibodies to HCV no t detected; does not exclude early acuteHCV infection. Blood Venous blood specimen / Unknown 02/17/2024 10:31 AM EDT 02/17/2024 2:28 PM EDT Nicolle Dover MD LAB BLOOD ORDERABLES Final Re sult Performing Organization Address [facility] Co de Phone Number [facility] [address] [place] [phone] * HIV-1/2 Antigen and Antibodies, Fourth Generation, with Reflexes (02/17/2024 10:31 AM EDT) HIV AB/AG Nonreactive Nonreactive [facility] Comment:HIV-1 p24 Ag and/or HIV-1/HIV-2 Ab not detected.A test result that is nonreactive does not exclude thepossibility of exposure to or infection with HIV-1 and/orHIV-2. Nonreactive results in this assay for individualswith prior exposure to HIV-1 and/or HIV-2 may be due toantigen and antibody levels that are below the limit ofdetection of this assay.The [employer] HIV Ag/Ab Combo assay result andsupplemental assay results should be interpreted inconjunction with the patient's clinical presentation,history and other laboratory results. If the results areinconsistent with clinical evidence, additional testing issuggested to confirm the result. Blood Venous blood specimen / Unknown 02/17/2024 10:31 AM EDT 02/17/2024 2:28 PM EDT us Nicolle Dover MD LAB BLOOD ORDERABLES Final Re sult Performing Organization Address [facility] Co de Phone Number [facility] [address] [place] [address] [phone] * (ABNORMAL) Lipid Panel, Standard (02/17/2024 10:31 AM EDT) Triglycerides 40 <150 mg/dL [facility] Comment:Desirable Triglyceri de: less than 150 mg/dLBorderline High Triglyceride 150-199 mg/dLHigh Triglyceride: 200-499 mg/dLVery High Triglyceride: greater than or equal to 5OO mg/dL Cholesterol 180 <200 mg/dL [facility] Comment:Desirable Cholestero l: less than 200 mg/dLBorderline High Cholesterol: 200-239 mg/dLHigh Cholesterol: greater than 239 mg/dL LDL Cholesterol Calculated 105(H) <100 mg/dL [facility] Comment:Desirable LDL: less than 100 mg/dLNear Optimal/Above Optimal LDL: 110- 129 mg/dLBorderline High LDL: 130-159 mg/dLHigh LDL: 160-189 mg/dLVery High LDL: greater than or equal to 190 mg/dL HDL Cholesterol 67 >40 mg/dL [facility] Comment:Desirable HDL: great er than 40 mg/dL Note: This HDL assay may give artificially low results in patients with liver disease. Blood Venous blood specimen / Unknown 02/17/2024 10:31 AM EDT 02/17/2024 2:25 PM EDT us Nicolle Dover MD LAB BLOOD ORDERABLES Final Re sult Performing Organization Address [facility] Co de Phone Number [facility] [address] [place] [address] [phone] from Last 3 Months or Most Recently Relevant to Health Maintenance Insurance [facility] C3 Care Teams Engineering Programmer Relationship Specialty Start Date End Date Nicolle Dover MD [address] [place] [address] PCP - General Family Medicine 12/01/23 Darby Aldana STAIR BUILDER Psychiatrist 06/27/21
--- OUTSIDE RECORDS SUMMARY | 2024-07-26 14:55 | XMS_ITS | Encounter Summary ---
Author Organization [employer] Address [address] [facility] 7t [place] [address] Care Team Providers Care Manufacturing Controller Name Role Phone Nicolle Dover MD Primary Care Provider [phone] Reason for Visit * Reason Comments Med Refill Encounter Details Date Type Department Care Team ([facility] st Contact Info) Description 07/20/2024 Refill [facility] CHC MED & PEDS [address] [place], [place] [phone] Nicolle Dover MD [address] [place] [address] Social History Tobacco Use Types Packs/Day Years Used Date Smoking Tobacco: Former Cigarettes Q uit: 06/27/2007 Passive Smoke Exposure: Past Smokeless Tobacco: Never Alcohol Use Standard Drinks/Week Comments Never 0 (1 standard drink = 0.6 oz pur e alcohol) Housing Stability Answer Date Recorded What is your housing situation today? I have niki sing 02/07/[address] you li [...] the past 12 months, has t he [employer], gas, oil or water company threatened to [...] Description 07/30/2024 10:30 AM EST Clinical Support [facility] DIABETES/NUTRITION [address] [place] [address] [place] [address] documented as of this encounter Visit Diagnoses Not on filedocumented in this encounter Care Teams Manufacturing Controller Relationship Specialty Start Date End Date Nicolle Dover MD [address] [place] [address] PCP - General Family Medicine 12/01/23 Darby Aldana NP Psychiatrist 06/27/21 documented as of this encounter
--- OUTSIDE RECORDS SUMMARY | 2024-07-26 14:55 | XMS_ITS | Encounter Summary ---
Author Organization [email or web address] Address [address] [facility] 7t [place] [address] Care Team Providers Care Geospatial Intelligence Analyst Name Role Phone Nicolle Dover MD Primary Care Provider [phone] Reason for Visit * Reason Onset Date Comments Appointment Request 05/15/2024 Encounter Details Date Type Department Care Team ([facility] st Contact Info) Description 05/15/2024 Telephone [facility] MEDICINE [address] [place] [address] Nicolle Dover MD [address] [place], [place] [phone] Appointment Request Social History Tobacco Use Types Packs/Day Years [...] t he electric, gas, oil or water [employer] [place] threatened to shut off services in your [...] AM EDT documented as of this encounter Miscellaneous Notes * Telephone Encounter - Rafa Hawthorne - 05/15/2024 3:45 PM EST Tc from pt requesting flue vaccine. Mine Laborer advised vaccine clinic but due to transportation pt is requesting to have it done at [facility]. If any questions please contact pt at [phone]. documented in this encounter Plan of Treatment Upcoming Encounters Date Type Department Care Team (Late st Contact Info) Description 07/30/2024 10:30 AM EST Clinical Support [facility] DIABETES/NUTRITION [address] [place] [address] [place] [address] documented as of this encounter Visit Diagnoses Not on filedocumented in this encounter Care Teams Geospatial Intelligence Analyst Relationship Specialty Start Date End Date Nicolle Dover MD [address] [place] [address] PCP - General Family Medicine 12/01/23 Darby Aldana NP Psychiatrist 06/27/21 documented as of this encounter
--- OUTSIDE RECORDS SUMMARY | 2024-07-26 14:55 | XMS_ITS | Encounter Summary ---
Author Organization [employer] Address [address] 7t [place] [address] Care Team Providers Care Business Services Director Name Role Phone Nicolle Dover MD Primary Care Provider [phone] Encounter Details Date Type Department Care Team (Latest Contact Info) Description 07/23/2024 Travel Social History Tobacco Use Types Packs/Day [...] Description 07/30/2024 10:30 AM EST Clinical Support [facility] DIABETES/NUTRITION [address] [place] [address] [place] [address] documented as of this encounter Visit Diagnoses Not on filedocumented in this encounter Care Teams Business Services Director Relationship Specialty Start Date End Date Nicolle Dover MD [address] [place] [address] PCP - General Family Medicine 12/01/23 Darby Aldana NP Psychiatrist 06/27/21 documented as of this encounter
--- OUTSIDE RECORDS SUMMARY | 2024-07-26 14:55 | XMS_ITS | Encounter Summary ---
Author Organization [employer] Address [address] 7t [place] [address] Care Team Providers Care Boat Camp Operator Name Role Phone Nicolle Dover MD Primary Care Provider [phone] Encounter Details Date Type Department Care Team (Latest Contact Info) Description 07/02/2024 Travel Social History Tobacco Use Types Packs/Day [...] 10:30 AM EST Clinical Support [facility] DIABETES/NUTRITION [address] [place] [address] [place] [address] documented as of this encounter Visit Diagnoses Not on filedocumented in this encounter Care Teams Boat Camp Operator Relationship Specialty Start Date End Date Nicolle Dover MD [address] [place] [address] PCP - General Family Medicine 12/01/23 Darby Aldana NP Psychiatrist 06/27/21 documented as of this encounter
--- OUTSIDE RECORDS SUMMARY | 2024-07-26 14:55 | XMS_ITS | Encounter Summary ---
Author Organization [employer] Address [address] [facility] 7t [place] [address] Care Team Providers Care Electric Range Assembler Name Role Phone Nicolle Dover MD Primary Care Provider [phone] Encounter Details Date Type Department Care Team ([facility] st Contact Info) Description 06/29/2024 Telephone [facility] Information Management [address] [place] [address] Nicolle Dover MD [address] [place], [place] [phone] Social History Tobacco Use Types Packs/Day Years [...] Description 07/30/2024 10:30 AM EST Clinical Support [facility] DIABETES/NUTRITION [address] [place] [address] [place] [address] documented as of this encounter Visit Diagnoses Not on filedocumented in this encounter Care Teams Electric Range Assembler Relationship Specialty Start Date End Date Nicolle Dover MD [address] [place] [address] PCP - General Family Medicine 12/01/23 Darby Aldana NP Psychiatrist 06/27/21 documented as of this encounter
--- OUTSIDE RECORDS SUMMARY | 2024-07-26 14:55 | XMS_ITS | Continuity of Care Document ---
Author Organization [facility] Address [address] [address],[address] [place] [address] Phone Care Team Providers Care Type Cutter Name Role Phone Magdy Ford MD, Kenyon Unavailable Unavailab le Procedures Procedure Date PULSE OX COVID-19 Swab Procedure Only No E/M Advance Directives Directive Yes / No Effective Date File Name No Information Encounters Encounter Description Practice Location Reason(s) For Visit Diagnoses Date Provider Providers Copied on Encounter jerrod [facility], [address] [place] [address],[address] [address], [place], [place], [id number], tel:[phone] [facility] No Information Magdy Prescott. [address] [place] [address], [id number], [place]. tel:[phone] [facility], [address] [place] [address],[facility] [address], [place], [place], [id number], tel:[phone] [facility] COVID TEST (chief complaint) Contact w and exposure to oth viral communicable diseases 1 No Information Family History Family Member Type Diagnosis Age At Onset No Information Payers Payer name Insurance type Covered libertarian ID Authoriza tion(s) [facility] [id number] Social History Type Description Quantity Date Captured [...]
--- OUTSIDE RECORDS SUMMARY | 2024-07-26 14:55 | XMS_ITS | Encounter Summary ---
Author Organization [employer] Address [address] [facility] 7t [place] [address] Care Team Providers Care Desktop Support Engineer Name Role Phone Nicolle Dover MD Primary Care Provider Encounter Details Date Type Department Care Team (Latest Contact Info) Description 07/02/2024 1:00 PM EST Clinical Support [facility] DIABETES/NUTRITION [address] [place], [place] [phone] Liane Barbosa RD [address] [place], [place] [phone] Class 1 obesity due to excess calories without serious comorbidity with body mass index (BMI) of 32.0 to 32.9 in adult (Primary Dx) Social History Tobacco Use Types Packs/Day Years [...] Sign Reading Time Taken Comments Blood Pressure - - Pulse - - Temperature - - Respiratory Rate - - Oxygen Saturation - - Inhaled Oxygen Concentration - - Weight 110 kg (242 lb 3.2 oz) 07/03/2024 1:12 PM EST Height 182.9 cm (6') 07/03/2024 1:12 PM EST Body Mass Index 32.85 07/03/2024 1:12 PM EST documented in this encounter Progress Notes * Liane Barbosa RD - 07/02/2024 1:00 PM EST In Person Visit Medical Diagnosis: E66.09, Z68.32 Class 1 obesity due to excess calories with serious comorbidity and body mass index (BMI) of 32.0 to 32.9 in adult Anthropometrics: Ht:6' (1.829 m), Wt:242 lb 3.2 oz (110 kg), BMI: Body mass index is 32.85 kg/m??. Assessment: Patient (Pt) accepted nutrition education assessment appointment with [facility]. RD took Pt's weight. Weight revealed a decrease by three (3) pounds since last appointment with RD on 05/29/2024. RD took 24 hour recall/ typical daily intake from Pt. Intake revealed Pt is following his Tailored made meal plan. Pt admitted to be following a tighter Tailored made meal plan which is closer to at ketogenic diet which is fine and Pt's body accepts it well. Pt asked about different supplements, as in, zinc, vitamin D3, and sources of iodine. RD addressed each supplement and showed sources and research on each on- line. Pt welcome information. RD Highly suggested for Pt to do his research further and be more educated on each supplement. Pt said he would. A follow up appointment is scheduled in the first week of July 2024. Food Allergies: NKFA Exercise: Will be exercising at gym 5 days per week for an average one plus hours Food Intolerance: Lactose Food Preferences: Beef, chicken, jerky meats, turkey, pork, eggs, heavy whipping cream, ice cream, cream cheese, cheese, anna, corn chips, avocados, cabbage, onions, peppers, green beans, mayonnaise, Cajun Sami fries, potatoes, sweet potatoes, glazed donuts, bagels, breads, rolls, cookies, muffins, coffee, tea Food Dislikes: Didn't say Frequency of Eating Out/ Restaurant: 3-4 x weekly Who Cooks?: Parent How much caffeine?: coffee 1-2 cups /day How much sugary beverages?: Not a norm; does drink sugar free Powerade Diet History: Breakfast: Note: Pt still is skipping breakfast on some days, per Pt. Eg Cheese: 1 slice Meat/ beef alayna: 3-4 oz. Coffee, black: 1+ cups Snack: Water: 1+ cups Lunch: None Water: 2+ cups Snack: Chicharrones: 3-4 oz. Water: 2+ cups Dinner: Dried beef meat from [employer]: 8 oz. Or chicken: 6+ oz.; Or, rid eye steak: 8+ oz.; Or, pork: 6+ oz.; Or sardines in a can in EVOO: 6 oz. Avocado: one, whole Egg: one Or Cheese: 6 oz. Water: 2-3+ cups Snack: [place] whipped cream: 6 oz. Or, Keto ice cream: Rebel salted caramel Water: 1/2 - 1 cup Nutrition Diagnosis: NI-5.8.4Inconsistent carbohydrate intake related to food and knowledge deficit as evidence by 24 hour recall/ typical daily intake. NC- 3.3Obesity related to excessive energy intake with limited physical activity as evidence by 24 hour recall/ typical daily intake and BMI >33. Nutrition Intervention: RD is ok with Pt following a tighter Tailored made meal plan as in being close to following a ketogenic diet. Pt reports that he is doing well with it and feels better with it. RD suggest that Pt continue to follow his Tailored made meal plan. If Pt chooses to do his meal plan tighter, RD is ok with it. Goals: Eat two carbohydrates for breakfast, lunch and dinner Eat one carbohydrate for mid morning and mid afternoon snacks Eat a fresh salad > one cup at both lunch and dinner Eat protein and fats as advised in meal plan Drink water as beverage of choice-> 6-8 glasses and/ or Crystal Light/ Sugar free Exercise at least 30 minutes per day Use extra virgin olive oil(EVOO) after cooking on foods-> don't cook with EVOO Monitoring and Evaluation: Indicator Criteria Adherence frequency of eating, portion controls, carbohydrate exchanges, protein intake Weight Loss BMI, exercise routine and frequency Provider: Liane Barbosa RD, CLAIREN documented in this encounter Plan of Treatment Upcoming Encounters Date Type Department Care Team (Late st Contact Info) Description 07/30/2024 10:30 AM EST Clinical Support [facility] DIABETES/NUTRITION [address] [place] [address] [place] [address] documented as of this encounter Visit Diagnoses Diagnosis Class 1 obesity due to excess calories without serious comorbidity with body mass index (BMI) of 32.0 to 32.9 in adult- Primary documented in this encounter Care Teams Desktop Support Engineer Relationship Specialty Start Date End Date Nicolle Dover MD [address] [place] [address] PCP - General Family Medicine 12/01/23 Darby Aldana NP Psychiatrist 06/27/21 documented as of this encounter
--- OUTSIDE RECORDS SUMMARY | 2024-07-26 14:55 | XMS_ITS | Encounter Summary ---
Author Organization [employer] Address [address] 7t [place] [address] Care Team Providers Care Hand Collator Name Role Phone Nicolle Dover MD Primary Care Provider Encounter Details Date Type Department Care Team (Latest Contact Info) Description 07/10/2024 Travel Social History Tobacco Use Types Packs/Day [...] Description 07/30/2024 10:30 AM EST Clinical Support [facility] DIABETES/NUTRITION [address] [place] [address] [place] [address] documented as of this encounter Visit Diagnoses Not on filedocumented in this encounter Care Teams Hand Collator Relationship Specialty Start Date End Date Nicolle Dover MD [address] [place] [address] PCP - General Family Medicine 12/01/23 Darby Aldana NP Psychiatrist 06/27/21 documented as of this encounter
--- OUTSIDE RECORDS SUMMARY | 2024-07-26 14:55 | XMS_ITS | Data Portability ---
Author Organization [place] - [facility], Allergy Address [address] [place] [address] Care Team Providers Care Calender Wind Up Helper Name Role Phone EMILIANO BARAJAS Primary Care Provider [phone] Assessment Encounter Date Assessment Date Assessment LastModified [...] By Organization Details Last Modified Time 07/12/2024 [id number] Nursing Documentation for Allergy Testing: Ordering Provider {{Dr. Savita Fowler}} Weight:lbs:235? ? ?kg: ? ? ? PFT {{Yes* no}} With Bronchodilator {{Yes no*}} Dr. abdullahi needed to proceed with allergy testing? {{Yes* No}} {{Dr. Savita Fowler}} ok'd testing {{Yes* No Pulmonar y Clearance PCP Clearance RAST}}Hi story of Asthma:{{Yes No*}} Asthma Meds: ? ? ?Last used:? ? ? Asthma exacerbated by: ? ? ? Chance that : {{Yes No* Not Sure N/A}} Fear of needles: {{Yes* No}} Regular medications reviewed in Computer: {{Yes* No}} Medication allergies: {{Reviewed NKDA*}} Antihistamine use: {{Yes* No}} Medications used:loratadine ? ? ? Food Allergies:no ? ? ? Any foods make your mouth feeling itchy: {{Yes No*}} If yes: ? ? ? History of severe reaction where had to go to ER? {{Yes No*}} If yes details: ? ? ? Type of heat in home: {{Baseboard Forced Air* Radiator othe r}} Pets: {{Yes No*}} If yes: ? ? ? Smoker: {{Yes Current Never Form er*}} If former smoker-how much ? ? ? 5/ day for how long 15 yrs ? ? ? When quit 1yr ago years ago Smoking now-how much ? ? ? Occupation/Social History: ? ? ? Symptoms having: {{Congestion* Post Nasal Drip Headache Runn y Nose Cough Other}} If other: ? ? ? Frequency {{Seasonally Year Round*}} Spirometry Contraindications: Heart [...] for a different date {{Yes No*}} Other: ? ? ? Written by: {{VELASQUEZ Weber, Yariel* Luci Ro}} gi Not available 07/12/2024 14:06:33 Reason for Referral None Reported. Results Created Date Observation Date Name Description Value Unit Range Abnormal Flag Note LastModifiedBy Organization Detail LastModifiedTime 06/08/20 24 audio gram No observ ation record ed. BARCODE Not Available 2023 15:09:13 07/12/19 25 nohemi metry testi ng* No observ ation record ed. [email or web address] Not Available 07/25 09:04:32 Result Notes None recorded. Problems Name Problem SNOMED Code Status Onset Date Resolution Date Notes Provider Name and Address Organization Details Recorded Time Sensorineur al hearing loss 15914694 Active 2023 Jaki crum [place] - [facility] 4 10:01:30 Nasal congestion 10452623 Active 2023 ROCKY JACOME MD [address] [place] [address], [facility] [place], [address], [facility] - [facility] 4 10:44:01 Allergic rhinitis 15587053 Active 2023 ROCKY JACOME MD [address] [place] [address], [facility] [place], [address], [facility] - [facility] 4 10:44:39 Non-allergi c rhinitis 555422375175 Active 2023 ROCKY JACOME MD [address] [facility], [place], [address], [facility] - [facility] 4 10:45:22 Seasonal allergic rhinitis 932190100 Active 2023 ROCKY JACOME MD [address] [facility], [place], [address], [facility] - [facility] 4 10:45:22 Problem Notes None recorded. Procedures Surgical History Date Name Laterality Status Provider Name and Address Organization Details Recorded Time 5 Allergy Testing-Full completed [facility] [address] [facility],[address] [place] [address], [place], [address], [facility] 07/12/2024 14:06:19 4 Comp Audio with Tymps (62861 & 05503) completed Jaki Mabry [place] - [facility] 06/08/2024 10:01:16 Imaging Results Imaging Date Name Status LastModified by Organiz ation Details LastModified Time 06/08/2024 audiogram completed [facility] Information no t available 06/08/2024 15:09:13 07/12/2024 spirometry testing* completed [email or web address] Information not available 07/25/2024 09:04:32 Procedure Notes None recorded. Medical Equipment None [...] Updated DateTime 06/08/2024 185.42 cm 32.7 kg/m2 813829.11 g Georgina Trevor [place] - [facility] 06/08/2024 10:23:10 Date Recorded Body height Oxygen saturation Oxygen saturation in Arterial blood by Pulse oximetry Heart rate Body mass index (BMI) Body weight Systolic blood pressure Diastolic blood pressure Provider Name and Address Organization Details Last Updated DateTime 185.42 cm 98 % 98 % 76 /min 31 kg/m2 717722. 21 g 122 mm[Hg] 78 mm[Hg] [facility] [address], [address], [facility] 13:14:34 Social History Question Answer Notes LastModified by Organizat ion Details LastModified Time Tobacco Smoking Status Former Smoker [address], [address], [facility] 07/12/2024 13:18:44 When Did You Quit Smoking? [...] Emphysema N Migraines N Thyroid Problems N Developmental Delay N Depression Y COPD N Glaucoma N Nasal or Sinus Problems Y Anemia N Immune System Disorder N Anesthesia Complications N Heart Attack ([place]) N Other Skin Condition N Diabetes N Rhinitis N Bleeding Disorder N Food Allergy N Arthritis N Hearing Loss N Hyperlipidemia N Cancer N Stroke N Dementia N Asthma N Nasal polyps N Sleep Disorder Y GERD/Reflux N High Cholesterol N Liver Disease N Fibromyalgia N Headaches N Hypertension N Speech Delay N Kidney Disease N Past Encounters Encounter ID Performer Location Encounter Start Date Encounter Closed Date Diagnosis/Indication Diagnosis SNOMED-CT Code Diagnosis ICD10 Code Diagnosis Note [id number] ROCKY JACOME MD [facility] [address] [place] [address] 06/08/2024 09:29:13 06/08/2024 10:52:18 Sensorineural hearing loss 62165828 H90.42 Audiologic al evaluation results: Right ear: [...] not maintain a hermetic seal}} Nasal congestion 3861812 0 R09.81 Allergic rhinitis 951365 04 J30.9 [id number] TIERA LATIF, RMA Allergy [address] [facility],[address] [place] [address] 07/12/2024 12:59:17 07/12/2024 14:07:29 Allergic rhinitis 08139786 J30.9 Health Concerns Section Related Observation LastModified by Organization Detai ls LastModified Time None Recorded Concern Status LastModified by Organization Details LastModified Time None Recorded Advance Directives Directive None Recorded Payers Encounter Date Sequence Insurance Name Policy Number Policy Mcclendon Covered Member ID Mcclendon Member ID Guarantor Name 06/08/2024 1 [place] [facility] Deonte Lemus [id number] Deonte Lemus 07/12/2024 1 [place] [facility] Deonte Lemus [id number] Deonte Lemus Notes Date Note Type Note [...] nasal steroids daily ROCKY JACOME MD [address] [facility] [address], [place], [address], [facility] - [facility] 06/21/2024 06:51:30
--- OUTSIDE RECORDS SUMMARY | 2024-07-26 14:55 | XMS_ITS | Encounter Summary ---
Author Organization [employer] Address [address] [facility] 7t [place] [address] Care Team Providers Care Fuse Cutter Name Role Phone Nicolle Dover MD Primary Care Provider [phone] Reason for Visit * Reason Onset Date Comments Med Refill 07/17/2024 Encounter Details Date Type Department Care Team ([facility] st Contact Info) Description 07/17/2024 Telephone [facility] CHC MED & PEDS [address] [place], [place] [phone] Nicolle Dover MD [address] [place] [address] Med Refill Social History Tobacco Use Types Packs/Day Years Used Date Smoking Tobacco: Former Cigarettes Q uit: 06/27/2007 Passive Smoke Exposure: Past Smokeless Tobacco: Never Alcohol Use Standard Drinks/Week Comments Never 0 (1 standard drink = 0.6 oz pur e alcohol) Housing Stability Answer Date Recorded What is your housing situation today? I have nikikrystin cazares 02/07/[address] you [...] encounter Miscellaneous Notes * Telephone Encounter - Zonia Thrasher - 07/17/2024 10:59 AM EST (Flonase) 50 MCG/ACT nasal spray documented in this encounter Plan of Treatment Upcoming Encounters Date Type Department Care Team (Late st Contact Info) Description 07/30/2024 10:30 AM EST Clinical Support [facility] DIABETES/NUTRITION [address] [place] [address] Liane Barbosa, RD [address] [place] [address] documented as of this encounter Visit Diagnoses Not on filedocumented in this encounter Care Teams Fuse Cutter Relationship Specialty Start Date End Date Nicolle Dover MD [address] [place] [address] PCP - General Family Medicine 12/01/23 Darby Aldana, PHARMACY OPERATIONS MANAGER Psychiatrist 06/27/21 documented as of this encounter
--- OUTSIDE RECORDS SUMMARY | 2024-07-26 14:55 | XMS_ITS | Encounter Summary ---
Author Organization [employer] Address [address] [facility] 7t [place] [address] Care Team Providers Care Injection Molding Machine Operator Name Role Phone Nicolle Dover MD Primary Care Provider [phone] Reason for Visit * Reason Onset Date Comments Medication Question 07/18/2024 Encounter Details Date Type Department Care Team ([facility] st Contact Info) Description 07/18/[address] [facility] CHC MED & PEDS [address] [place], [place] [phone] Nicolle Dover MD [address] [place] [address] Medication Question Social History Tobacco Use Types Packs/Day Years [...] encounter Miscellaneous Notes * Telephone Encounter - Mariela Cronin LPN - 07/19/2024 10:39 AM EST PCP off. Last seen 07/17/24. * Telephone Encounter - Jessica Ryan - 07/18/2024 3:12 PM EST Tc from pt stating he was advise by [facility] pharmacy that health insurance will only cover a 90 daysupply for medication fluticasone (Flonase) 50 MCG/ACT nasal spray. If any questions contact pt at [phone] documented in this encounter Plan of Treatment Upcoming Encounters Date Type Department Care Team (Late st Contact Info) Description 07/30/2024 10:30 AM EST Clinical Support [facility] DIABETES/NUTRITION [address] [place] [address] [place] [address] documented as of this encounter Visit Diagnoses Not on filedocumented in this encounter Care Teams Injection Molding Machine Operator Relationship Specialty Start Date End Date Nicolle Dover MD [address] [place] [address] PCP - General Family Medicine 12/01/23 Darby Aldana NP Psychiatrist 06/27/21 documented as of this encounter
--- OUTSIDE RECORDS SUMMARY | 2024-07-26 14:55 | XMS_ITS | Encounter Summary ---
Author Organization [employer] Address [address] [facility] 7t [place] [address] Care Team Providers Care Brass Wind Instruments Tube Bender Name Role Phone Nicolle Dover MD Primary Care Provider [phone] Encounter Details Date Type Department Care Team ([facility] st Contact Info) Description 07/19/2024 Orders Only [facility] CHC MED & PEDS [address] [place], [place] [phone] Nolan Duron MD [address] [place], [place] [phone] Social History Tobacco Use Types Packs/Day Years [...] 07/30/2024 10:30 AM EST Clinical Support [facility] DIABETES/NUTRITION [address] [place] [address] [place] [address] documented as of this encounter Visit Diagnoses Not on filedocumented in this encounter Care Teams Brass [employer] Instruments Tube Bender Relationship Specialty Start Date End Date Nicolle Dover MD [address] [place] [address] PCP - General Family Medicine 12/01/23 Darby Aldana NP Psychiatrist 06/27/21 documented as of this encounter
--- OUTSIDE RECORDS SUMMARY | 2024-07-26 14:55 | XMS_ITS | Encounter Summary ---
Author Organization [employer] Address [address] [facility] 7t [place] [address] Care Team Providers Care Concierge Name Role Phone Nicolle Dover MD Primary Care Provider [phone] Reason for Visit * Reason Onset Date Comments Referral 07/17/2024 Encounter Details Date Type Department Care Team ([facility] st Contact Info) Description 07/17/2024 Telephone [facility] CHC MED & PEDS [address] [place], [place] [phone] Nicolle Dover MD [address] [place] [address] Referral Social History Tobacco Use Types Packs/Day Years [...] t he electric, gas, oil or water Curse threatened to shut off services in your [...] encounter Miscellaneous Notes * Telephone Encounter - Julia Ignacio - 07/17/2024 2:22 PM EST Referral re faxed today. * Telephone Encounter - Zonia Thrasher - 07/17/2024 10:56 AM EST Pt states when physical therapy referral was sent to [facility] there was technical issues on there end and they did not receive referral, pt asking if it would be re faxed documented in this encounter Plan of Treatment Upcoming Encounters Date Type Department Care Team (Late st Contact Info) Description 07/30/2024 10:30 AM EST Clinical Support [facility] DIABETES/NUTRITION [address] [place] [address] [place] [address] documented as of this encounter Visit Diagnoses Not on filedocumented in this encounter Care Teams Concierge Relationship Specialty Start Date End Date Nicolle Dover MD 230 [place] [address] PCP - General Family Medicine 12/01/23 Darby Aldana NP Psychiatrist 06/27/21 documented as of this encounter
--- OUTSIDE RECORDS SUMMARY | 2024-07-26 14:55 | XMS_ITS | Continuity of Care Document ---
Author Organization [place] - [facility], Allergy Address [address] [place] [address] Care Team Providers Care Software Firmware Engineer Name Role Phone EMILIANO BARAJAS Primary Care Provider [phone] Assessment No assessment recorded. Plan of Treatment Reminders Order Date Submit Date Provider Last Modified By Organization Details Last Modified Time Details Appointments Establish ed 15 2024 02:15P M ROCKY JACOME MD Not available Not available Not available Lab None recorded. Referral None recorded. Procedures None recorded. Surgeries None recorded. Imaging None recorded. Medication Orders None recorded. Patient TargetsNo targets recorded. Patient Instructions Encounter Date Encounter Id Patient Instructions Last Modified By Organization Details Last Modified Time 07/12/2024 [id number] Nursing Documentation for Allergy Testing: Ordering Provider {{Dr. Savita Fowler}} Weight:lbs:235? ? ?kg: ? ? ? PFT {{Yes* no}} With Bronchodilator {{Yes no*}} approval needed to proceed with allergy testing? {{Yes* [...] ? ? ? Written by: {{VELASQUEZ Weber, JAMAR* Luci Ro}} [email or web address] Not available 07/12/2024 14:06:33 Reason for Referral None Reported. Results Created Date Observation Date Name Description Value Unit Range Abnormal Flag Note LastModifiedBy Organization Detail LastModifiedTime 07/12/19 25 nohemi metry testi ng* No observ ation record ed. [email or web address] Not Available 07/25 09:04:32 Result Notes None recorded. Problems Name Problem SNOMED Code Status Onset Date Resolution Date Notes Provider Name and Address Organization Details Recorded Time Sensorineur al hearing loss 72062065 Active 2023 Jaki crum [place] - [facility] 4 10:01:30 Nasal congestion 20525695 Active 2023 ROCKY JACOME MD [address] [facility], [place], [address], [facility] - [facility] 4 10:44:01 Allergic rhinitis 09872392 Active 2023 ROCKY JACOME MD [address] [facility],[address], [facility] [place], [address], [facility] - [facility] 4 10:44:39 Non-allergi c rhinitis 397589096140 Active 2023 ROCKY JACOME MD [address] [facility] [place] [place], [facility] [place], [address], [facility] - [facility] 4 10:45:22 Seasonal allergic rhinitis 668373940 Active 2023 ROCKY JACOME MD [address] [facility] [place] [place], [facility] [place], [address], [facility] - [facility] 4 10:45:22 Problem Notes None recorded. Procedures Surgical History Date Name Laterality Status Provider Name and Address Organization Details Recorded Time 5 Allergy Testing-Full completed [facility], [facility] [address] [facility],[place] [address], [place], [address], [facility] - [facility] 07/12/2024 14:06:19 4 Comp Audio with Tymps ([id number] & 89770) completed Jaki Mabry [place] [facility] 06/08/2024 10:01:16 Imaging Results None recorded. Procedure Notes None recorded. Medical Equipment None [...] Not Available Vitals Date Recorded Body height Oxygen saturation Oxygen saturation in Arterial blood by Pulse oximetry Heart rate Body mass index (BMI) Body weight Systolic blood pressure Diastolic blood pressure Provider Name and Address Organization Details Last Updated DateTime 185.42 cm 98 % 98 % 76 /min 31 kg/m2 816440. 21 g 122 mm[Hg] 78 mm[Hg] [address], [address] 13:14:34 Social History Question Answer Notes LastModified by Organizat ion Details LastModified Time Tobacco Smoking Status Former Smoker [address], [address], [facility] - [facility] 07/12/2024 [...] Disorder N Anesthesia Complications N Heart Attack ([place]) N Other Skin Condition N Diabetes N [...] SNOMED-CT Code Diagnosis ICD10 Code Diagnosis Note [id number] JAMAR PRUITT Allergy [address] [place] [address] [place] [address] 07/12/2024 12:59:17 07/12/2024 14:07:29 Allergic rhinitis 50355369 J30.9 Health Concerns Section Related Observation LastModified by Organization Detai ls LastModified Time None Recorded Concern Status LastModified by Organization Details LastModified Time None Recorded Payers Encounter Date Sequence Insurance Name Policy Number Policy Mcclendon Covered Member ID Mcclendon Member ID Guarantor Name 07/12/2024 1 [place] [facility] Deonte Lemus [id number] Deonte Lemus
--- OUTSIDE RECORDS SUMMARY | 2024-07-26 14:55 | XMS_ITS | Encounter Summary ---
Author Organization [employer] Address [address] [facility] [address] 7t [place] [address] Care Team Providers Care Gas Appliance Installer Name Role Phone Nicolle Dover MD Primary Care Provider [phone] Encounter Details Date Type Department Care Team (Latest Contact Info) Description 07/17/2024 Travel Social History Tobacco Use Types Packs/Day [...] Description 07/30/2024 10:30 AM EST Clinical Support [facility] DIABETES/NUTRITION [address] [place] [address] [place] [address] documented as of this encounter Visit Diagnoses Not on filedocumented in this encounter Care Teams Gas Appliance Installer Relationship Specialty Start Date End Date Nicolle Dover MD 230 [place] [address] PCP - General Family Medicine 12/01/23 Darby Aldana NP Psychiatrist 06/27/21 documented as of this encounter
--- OUTSIDE RECORDS SUMMARY | 2024-07-26 14:55 | XMS_ITS | Encounter Summary ---
Author Organization [employer] Address [address] [facility] 7t [place] [address] Care Team Providers Care Fell Cutter Name Role Phone Nicolle Dover MD Primary Care Provider [phone] Reason for Visit * Reason Onset Date Comments Med Refill 07/17/2024 Encounter Details Date Type Department Care Team ([facility] st Contact Info) Description 07/17/2024 Refill [facility] CHC MED & PEDS [address] [place], [place] [phone] Niclole Dover MD [address] [place] [address] Social History Tobacco Use Types Packs/Day Years [...] Description 07/30/2024 10:30 AM EST Clinical Support [facility] DIABETES/NUTRITION [address] [place] [address] [place] [address] documented as of this encounter Visit Diagnoses Not on filedocumented in this encounter Care Teams Fell Cutter Relationship Specialty Start Date End Date Nicolle Dover MD [address] [place] [address] PCP - General Family Medicine 12/01/23 Darby Aldana NP Psychiatrist 06/27/21 documented as of this encounter
--- OUTSIDE RECORDS SUMMARY | 2024-07-26 14:55 | XMS_ITS | Encounter Summary ---
Author Organization [employer] Address [address] [facility] 7t [place] [address] Care Team Providers Care Youth Coordinator Name Role Phone Nicolle Dover MD Primary Care Provider [phone] Reason for Visit * Reason Onset Date Comments Med Refill 04/06/2024 Encounter Details Date Type Department Care Team ([facility] st Contact Info) Description 04/06/2024 Refill [facility] CHC MED & PEDS 505 [place], [place] [phone] Nicolle Dover MD 505 [place] [address] Social History Tobacco Use Types Packs/Day Years [...] Description 07/30/2024 10:30 AM EST Clinical Support [facility] DIABETES/NUTRITION [address] [place] [address] [place] [address] documented as of this encounter Visit Diagnoses Not on filedocumented in this encounter Care Teams Youth Coordinator Relationship Specialty Start Date End Date Nicolle Dover MD [address] [place] [address] PCP - General Family Medicine 12/01/23 Darby Aldana NP Psychiatrist 06/27/21 documented as of this encounter
--- OUTSIDE RECORDS SUMMARY | 2024-07-26 14:55 | XMS_ITS | Encounter Summary ---
Author Organization [employer] Address [address] [facility] 7t [place] [address] Care Team Providers Care Ultrasound Specialist Name Role Phone Nicolle Dover MD Primary Care Provider [phone] Reason for Visit * Reason Onset Date Comments Medication Question 07/17/2024 Encounter Details Date Type Department Care Team ([facility] st Contact Info) Description 07/17/2024 Telephone [facility] CHC MED & PEDS [address] [place], [place] [phone] Nicolle Dover MD 505 [place] [address] Medication Question Social History Tobacco Use Types [...] encounter Miscellaneous Notes * Telephone Encounter - Shirlene Reynolds RN - 07/24/2024 9:39 AM EST TC placed to pt to advise having blood work drawn to assess current vitamin D levels. Once results are in the provider will then determine the necessity for supplementation. Pt agreeable to this planand will have labs drawn within the next week. * Addendum Note - ANGEL Billings - 07/23/2024 4:08 PM ESTAddended by: DERICK RODRIGUEZ on: 07/23/2024 04:08 PM Modules accepted: Orders * Telephone Encounter - ANGEL Billings - 07/23/2024 4:07 PM EST Anoop covering for Dover. Please let him know that Vit D lab has been ordered to check his vitamin D level. Once he checks level, we will know appropriate level of supplement to send. Thanks! * Telephone Encounter - Shirlene Reynolds RN - 07/18/2024 3:39 PM EST TC placed to pt in regards to request for vitamin D3 supplementation. Pt states that during his nutrition visit with Gill Barbosa it was discussed that vitamin D3 might be a potential beneficial vitamin to start taking. Pt is aware of the alternative sources of D3 including milk, fish, salmon, eggs and sunlight bug wants to try the oral supplement. Pt would like it prescribed by PCP as he currently has difficultly affording it OTC. Pt informed this will be sent to PCP for review. * Telephone Encounter - Jessica Ryan - 07/18/2024 3:14 PM EST Tc from pt returning call regarding prior message. Pt stated he has no voicemail or missed call. Contact pt at [phone] * Telephone Encounter - Shirlene Reynolds RN - 07/17/2024 2:38 PM EST TC placed to pt and LVM to call back the office * Telephone Encounter - Zonia Thrasher - 07/17/2024 11:03 AM EST Pt requesting a new med vitamin D3 states he sees blaise ad setter and per pt she stated he should be taking med documented in this encounter Plan of Treatment Upcoming Encounters Date Type Department Care Team (Late st Contact Info) Description 07/30/2024 10:30 AM EST Clinical Support [facility] DIABETES/NUTRITION [address] [place] [address] [place] [address] Scheduled Orders Name Type Priority Associated Diagnoses Orde r Schedule Vitamin D, 25-Hydroxy, Total, Immunoassay Lab Routine Healthcare maintenance Expected: 07/23/2024 (Approximate), Expires: 07/23/2025 documented as of this encounter Visit Diagnoses Diagnosis Healthcare maintenance- Primary documented in this encounter Care Teams Ultrasound Specialist Relationship Specialty Start Date End Date Nicolle Dover MD [address] [place] [address] PCP - General Family Medicine 12/01/23 Darby Aldana NP Psychiatrist 06/27/21 documented as of this encounter
[2024-07-26 14:59] LABS: Vitamin D 25-OH Total 73.9 ng/mL (>30)
== END 2024-07-26 10:57 | disposition home or self-care (01) ==
LOC: HO.CHCLDS 10:56
PROVIDERS: Visit Provider Registered Nurse
DX: Z00.00 Encounter for general adult medical examination without abnormal findings (principal)
CPT/HCPCS: 36415; 82306

== ENCOUNTER 2024-09-20 14:57 | Outpatient (RCR) | payer MEDICAID, SELFPAY | END 2024-09-20 16:15 | disposition home or self-care (01) | LOC: HO.PT 14:57 | PROVIDERS: PCP Family Medicine; Visit Provider Family Medicine | DX: M54.9 Dorsalgia, unspecified (principal) | CPT/HCPCS: 97110; 97161; 97530 ==

== ENCOUNTER 2025-02-07 09:25 | Outpatient (REF) | payer MEDICAID, SELFPAY ==
--- OUTSIDE RECORDS SUMMARY | 2020-07-23 10:08 | XMS_ITS | Continuity of Care Document ---
Author Organization [facility] Address [address] [address],[address] [place] [address] Phone Care Team Providers Care Municipal Firefighter Name Role Phone Magdy Ford MD, Ken[place] Unavailable Unavailab le Procedures Procedure Date PULSE OX COVID-19 Swab Procedure Only No E/M Advance Directives Directive Yes / No Effective Date File Name No Information Encounters Encounter Description Practice Location Reason(s) For Visit Diagnoses Date Provider Providers Copied on Encounter jerrod [facility], [address] [place] [address],[address] [address], [place], [place], [id number], tel:[phone] [facility] No Information Magdy Prescott. [address] [place] [address], [id number], [place]. tel:[phone] [facility], [address] [place] [address],[facility] [address], [place], [place], [id number], tel:[phone] [facility] COVID TEST (chief complaint) Contact w and exposure to oth viral communicable diseases 1 No Information Family History Family Member Type Diagnosis Age At Onset No Information Payers Payer name Insurance type Covered alliance party ID Authoriza tion(s) [facility] [id number] Social History Type Description Quantity Date Captured Comments Sex Male Smoking Status No Information Chief Complaint And Reason For Visit No Information Reason For Referral Reason For Referral No Information Plan Of Treatment Date Type Action Status Goal Unhealthy drug use screening . Due on due Goal Document SOGI Information. D ue on due Goal APE. Due on due Goal Td vaccine. Due on due Goal Diabetes Screening. Due on J due Goal Tdap. Due on due Goal Influenza vaccine. Due on Ja due History Of Present Illness Encounter Date Complaint History Of Prese nt Illness COVID TEST Pt presents to C OVID testing tent for Mid-Turbinate Nasal Swab Collection per POC. Functional Status Date Functional Assessmen t No Information Instructions Date Instruction Additional Infor mation No Information Assessments Type Assessment Date No Information Patient Care Teams Name Effective Dates (start - stop) Status Members No Information
--- OUTSIDE RECORDS SUMMARY | 2025-02-07 10:01 | XMS_ITS | Clinical Summary ---
Author Organization [address] [place] [address] Address [address] [place] [address] Phone Care Team Providers Care Senior System Operator Name Role Phone Nicolle Dover MD Primary Care Provider [phone] Social History Tobacco Use Types Packs/Day Years Used Date Smoking Tobacco: Never Assessed Sex and Gender Information Value Date Recorded Sex Assigned at Not on file Legal Sex Male 7:44 AM EDT Gender Identity Not on file Sexual Orientation Not on file Plan of Treatment Upcoming Encounters Date Type Department Care Team ([facility] Contact Info) Description 02/27/2025 2:00 PM EDT Consult Orthopedic Surgery - [place] [address] [address] Yoni Lazaro, DPM [address] [address] Health Maintenance Due Date Last Done Comments DTaP,Tdap,and Td Vaccines (1 - Tdap) 01/05/2007 Hepatitis B Vaccines (1 of 3 - 19+ 3-dose series) 01/05/2007 COVID-19 Vaccine ( - 2023-2 5 season) 2024 Depression Screening 06/27/2024 Cholesterol Screening (Lipid Panel) 12/20/2024 HIV Screening 12/20/2024 Hepatitis C Screening 12/20/2024 Social Influencers of Health Screening 12/20/2024 Influenza Vaccine (#1) 2025 HIB Vaccines Aged Out No longer eligi [...] on patient's age to complete this topic MMR Vaccines Aged Out No longer eligi ble based on patient's age to complete this topic Meningococcal ACWY Vaccine Aged Out N o longer eligible based on patient's age to complete this topic Meningococcal B Vaccine Aged Out No l onger eligible based on patient's age to complete this topic Pneumococcal Vaccine: Pediat rics (0 to 5 Years) and At-Risk Patients (6 to 49 Years) Aged Out No longer eligible b ased on patient's age to complete this topic RSV Immunization Patients Un mag 20 months Aged Out No longer eligible b ased on patient's age to complete this topic Varicella Vaccines Aged Out No longer eligible based on patient's age to complete this topic Insurance MEDICAID - [place] Care Teams Senior System Operator Relationship Specialty Start Date End Date Nicolle Dover MD [address] [place] [address] PCP - General Family Medicine 12/19/24
--- OUTSIDE RECORDS SUMMARY | 2025-02-07 10:01 | XMS_ITS | Encounter Summary ---
Author Organization [employer] Address [address] [place] [address] 7 [place] [address] Care Team Providers Care Support Manager Name Role Phone Nicolle Dover MD Primary Care Provider [phone] Reason for Visit * Reason Onset Date Comments Prior Authorization 02/04/2025 Encounter Details Date Type Department Care Team ([facility] Contact Info) Description 02/04/[address] [facility] CHC MED & PEDS [address] [place], [place] [phone] Nicolle Dover MD [address] [place] [address] Prior Authorization Social History Tobacco Use Types Packs/Day Years Used Date Smoking Tobacco: Former Cigarettes Q uit: 06/27/2007 Passive Smoke Exposure: Past Smokeless Tobacco: Never Alcohol Use Standard Drinks/Week Comments Never 0 (1 standard drink = 0.6 oz pur e alcohol) Depression Answer Date Recorded Patient Health Questionnaire-9 Score 0 01/25/2025 Patient Health Questionnaire-9 Score 0 01/25/2025 Last PHQ-9: Questionnaire Data Not on file 0 01/25/2025 Housing Stability Answer Date Recorded What is [...] off services in your home? No 02/07/2024 Depression Answer Date Recorded Patient Health Questionnaire-2 Score 0 01/25/2025 Internet Access Answer Date Recorded Internet Access [...] encounter Miscellaneous Notes * Telephone Encounter - Tuyet Taylor LPN - 02/06/2025 12:16 PM EDT PA generated and faxed to Tc from pt stating script for Tirzepatide-Weight Management (Zepbound) 15 MG/0.5ML solution auto-injector requires a PA. * Telephone Encounter - Jessica Ryan - 02/04/2025 4:14 PM EDT Tc from pt stating script for Tirzepatide-Weight Management (Zepbound) 15 MG/0.5ML solution auto-injector requires a PA. documented in this encounter Plan of Treatment Upcoming Encounters Date Type Department Care Team (Late st Contact Info) Description 02/07/2025 1:00 PM EDT Office Visit [facility] ADULT DENTAL [address] [place] [address] Eb Dover, ENRRIQUE 230 [place], [place] [phone] 02/21/2025 3:30 PM EDT Clinical Support [facility] DIABETES/NTRN [address] [place] [address] Liane Barbosa, ADAMA [address] [place] [address] documented as of this encounter Visit Diagnoses Not on filedocumented in this encounter Additional Health Concerns Assessment Noted Time PHQ-9 Depression Total Score: 0 01/26/20 25 3:16 PM EDT documented as of this encounter Care Teams Support Manager Relationship Specialty Start Date End Date Nicolle Dover MD [address] [place] [address] PCP - General Family Medicine 12/01/23 Darby Aldana SALES ASSISTANT Psychiatrist 06/27/21 documented as of this encounter
[2025-02-07 14:13] LABS: MANUAL DIFF FLAG NO
[2025-02-07 14:20] LABS: Hematocrit 41.2 % (42.0-52.0); Hemoglobin 13.9 g/dl (14.0-18.0); Imm Gran Abs Auto 0.01 X10*3/uL (0.00-0.03); Imm Gran Pct Auto 0.2 % (0.0-0.4); Lymphocytes Absolute Auto 1.6 X10*3/uL (1.2-4.9); Mean Corpuscular HGB Conc 33.7 g/dl (31.0-36.0); Mean Corpuscular Hemoglobin 30.3 pg (27.0-33.0); Mean Corpuscular Volume 89.8 fL (80.0-98.0); NRBC Abs Auto 0.000 X10*3/uL (0.0-0.012); NRBC Pct Auto 0.0 /100WBC (0.0-0.2); Platelet Count 298 X10*3/uL (160-400); Red Blood Count 4.59 X10*6/uL (4.60-5.80); White Blood Count 5.6 X10*3/uL (4.8-10.8)
[2025-02-07 14:38] LABS: Alanine Aminotransferase 17 U/L (0-40); Albumin Level 4.6 g/dL (3.5-5.0); Alkaline Phosphatase 53 U/L (39-117); Anion Gap 11 (12-20); Aspartate Amino Transferase 24 U/L (5-37); Blood Urea Nitrogen 17 mg/dL (9-16); Calcium 8.9 mg/dL (8.4-10.2); Carbon Dioxide 25 mmol/L (22-29); Chloride 107 mmol/L (96-108); Estimated Glomerular Filt Rate > 60; Iron 70 mcg/dL (45-160); Magnesium 2.0 mg/dL (1.6-2.6); Percent Iron Saturation 29 % (15-50); Potassium 3.8 mmol/L (3.3-5.1); Sodium 139 mmol/L (135-145); Total Iron Binding Capacity 239 mcg/dL (228-428); Total Protein 7.1 g/dL (6.5-8.0); Unsaturated Iron Binding 169 ug/dL
== END 2025-02-07 09:26 | disposition home or self-care (01) ==
LOC: HO.CHCLDS 09:25
PROVIDERS: Visit Provider Family Medicine
DX: E66.811 Obesity, class 1 (principal); Z68.32 Body mass index [BMI] 32.0-32.9, adult
CPT/HCPCS: 36415; 80053; 82306; 83540; 83735; 85025